=== PATIENT | male | born 1930 | race Caucasian/White ===

== ENCOUNTER → 2016-10-26 | Day surgery (SDC) | payer MEDICARE, OTHER ==
[2016-10-26] VITALS (7 sets, daily range): BP systolic 148–158; BP diastolic 76–89; PULSE 60; RESP 14–20; O2SAT 95–98
[~2016-10-26] VITALS: Ht 170.2 cm; Wt 65.9 kg
[~2016-10-26] MED LIST: AMOX250C PO; ASPI-973 PO; ATRV10T PO; CARB15DR2 OP; FURO-129 PO; Heparin 1,000 Unit/mL 10 mL Inj ONE; Heparin 1,000 Units/500 mL NS Premix IV ONE; Heparin 10,000 Unit/1,000 mL NS Premix IV ONE; KTC2C15 TP; LATA2.5D6 AFFECT_EYE; LISI-571 PO; MELA3TAB35 PO; METO-386 PO; POTA8CAP10 PO; TAMS0.4C29 PO; WARF1TAB6 PO; WARF2TAB7 PO; [UNRECOGNIZED DRUG - OTHER] TOP; diphenhydrAMINE 25 mg Capsule PO SCH; fentaNYL-PF 50 mCg/mL 2 mL Inj ONE
[2016-10-26 07:32] LABS: EOSINOPHILS % (AUTO) 2.7 % (0-5); MONOCYTES % (AUTO) 11.3 % (4-12); Mean Corpuscular Hemoglobin 31.2 pg (27.0-35.0); Mean Corpuscular Volume 92.8 fL (81-100); NEUTROPHILS % (AUTO) 58.5 % (40-74); Platelet Count 119 bil/L (150-400)
[2016-10-26 08:11] LABS: INR 1.37 ratio
--- NOTE | 2016-10-26 10:45 | DI95 ---
[address] [address] INTERVENTIONAL CARDIAC CATHETERIZATION PATIENT: STEVO BOYD : 1930 MR#: [id number] ADMIT: 10/26/2016 JOB ID: [id number] DATE: 10/26/2016 REASON FOR LEFT HEART CATHETERIZATION: This 86-year-old, pleasant male who has a history of Streptococcus viridans mitral valve endocarditis in 2004, with sequela resulting into progressively worsening mitral regurgitation and now severe mitral regurgitation based on echocardiogram done on August 30, 2016, dilated left ventricle with LV end-diastolic dimension about 5.9 cm and end-systolic dimension 4.1 cm with LV ejection fraction 50% to 55% with restrictive type of diastolic dysfunction, chronic AFib, with chronotropic incompetence, status post [facility] [place] single-chamber pacemaker in June 2009, hypertension and hyperlipidemia who was seen by Dr. Whelan for mitral valve repair. Today, came as an outpatient to undergo left heart catheterization prior to mitral valve repair to rule out coronary artery disease. Benefits and risks, which include, but not limited to, risk of bleeding, groin complication, myocardial infarction, stroke, , renal insufficiency and peripheral vascular complications, etc. and details discussed. His Coumadin was put on hold about five days prior to the procedure. INR today is less than 1.5. Creatinine is normal. The patient understood. All the questions were answered. Informed consent was obtained. PROTOHISTORIAN: Phillip Martinez MD. PROCEDURE: 1. Left heart catheterization. 2. Coronary arteriography. 3. Left ventricular pressure measurement. Next. DESCRIPTION OF PROCEDURE: Right groin was cleaned, prepped and draped in the usual sterile fashion. The skin and subcutaneous tissue were anesthetized with 1% lidocaine. Right femoral artery was accessed. A 6-Telugu sheath was introduced into the right femoral artery using modified Seldinger technique. The left coronary artery and the right coronary artery were engaged with 6-Telugu JL4 and JR4 catheters, respectively. Left ventricular pressure measurement was done with 6-Telugu pigtail catheter. All the catheters were advanced over the guidewire and flushed with heparinized saline and all the exchanges were made over the guidewire. The patient tolerated the procedure. There was no immediate complication, hemostasis being achieved by manual compression. HEMODYNAMICS: LV systolic pressure was about 171 mmHg and aortic pressure 169/74 mmHg, with LVEDP about 17 mmHg and no significant pullback gradient between the aorta and left ventricle. Left ventriculography was not performed due to significant distal left main disease. Coronary arteries: 1. Left main: Left main appears to be heavily calcified. The patient has ostial about 30% to 40% left main disease but distally, it is more than 90% and very tight. It is heavily calcified as well. 2. Left anterior descending artery: The left anterior descending artery tapers to a small vessel distally. After the second diagonal branch it harbors about 50% to 60% eccentric disease. First and second diagonal branches were free of any significant disease. There were some mild luminal irregularities in the diagonal system. The first diagonal branch appears to be less than 2, and second diagonal branch appears to be around 2 mm proximally. 3. Circumflex artery: The circumflex artery is a nondominant artery. In the AV groove it becomes a small vessel. The first obtuse marginal branch is a very small vessel. Second obtuse marginal branch is a decent sized vessel and harbors about 20% to 30% ostial disease. The third obtuse marginal branch, which is a small, less than 2 mm vessel, has severely diffuse disease in the proximal portion. 4. Right coronary artery: The right coronary artery is a dominant artery and harbors luminal irregularities without any critical stenosis. CONCLUSION: 1. Very severe, tight distal left main disease with moderate disease of mid left anterior descending after second diagonal branch. 2. Severe disease of proximal portion of the third obtuse marginal branch, which is a small vessel, without any critical disease of the dominant right coronary artery. PLAN: I discussed the case with his cardiothoracic surgeon, Dr. John Whelan, at [facility]. [facility] and possible mitral valve repair or replacement. Discussed the plan with the patient and his . They agreed and concurred. The patient will be transferred over there by ambulance with paramedics.
== END | disposition home or self-care (01) ==
LOC: SOUO 10-25 00:15
PROVIDERS: ATTEND Internal Medicine Cardiovascular Disease
DX: Z01.810 Encounter for preprocedural cardiovascular examination (principal); I25.10 Atherosclerotic heart disease of native coronary artery without angina pectoris; I34.0 Nonrheumatic mitral (valve) insufficiency; I10 Essential (primary) hypertension; I44.0 Atrioventricular block, first degree; Z95.0 Presence of cardiac pacemaker; I45.89 Other specified conduction disorders; I48.2 Chronic atrial fibrillation; Z79.82 Long term (current) use of aspirin; Z79.01 Long term (current) use of anticoagulants; I49.5 Sick sinus syndrome; E78.5 Hyperlipidemia, unspecified
CPT/HCPCS: 36415; 80048; 85025; 85610; 93005; 93458; 99152; 99153; C1769; J1644; J2250; J3010; J7030; Q9967